=== PATIENT | female | born 1990 | race Caucasian/White ===

== ENCOUNTER 2016-03-21 16:41 | Emergency (ER) | payer MEDICAID ==
[~2016-03-21] VITALS: Ht 157.5 cm; Wt 50.0 kg
[~2016-03-21 16:41] MED LIST: ZOFR4TAB3 SL
[2016-03-21 16:46] VITALS: BP 122/83; PULSE 106; RESP 20; TEMP 98; O2SAT 97
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
[2016-03-21] MEDS ORDERED: TETANUS/DIPHTHERIA TOXOID ADULT 0.5 ML VIAL IM ONE (18:30)
[2016-03-21] MEDS ORDERED: ACETAMINOPHEN/HYDROcodone 325 MG/5 MG TAB PO ONE (18:45)
[2016-03-21] MEDS ORDERED: AMOX875T PO (18:48)
[2016-03-21] MEDS ORDERED: HYDR-3533 PO (18:48)
== END 2016-03-21 19:00 | disposition home or self-care (01) ==
LOC: NEPB 16:41
DX: S02.401A Maxillary fracture, unspecified side, initial encounter for closed fracture (principal); S00.511A Abrasion of lip, initial encounter; S02.5XXA Fracture of tooth (traumatic), initial encounter for closed fracture; K01.0 Embedded teeth; F17.210 Nicotine dependence, cigarettes, uncomplicated; F12.10 Cannabis abuse, uncomplicated; F10.20 Alcohol dependence, uncomplicated; Z23 Encounter for immunization; Y93.55 Activity, bike riding; V18.0XXA Pedal cycle driver injured in noncollision transport accident in nontraffic accident, initial encounter; Y92.9 Unspecified place or not applicable; Y99.9 Unspecified external cause status
CPT/HCPCS: 70450; 70486; 90471; 90714

== ENCOUNTER 2017-01-24 15:15 | Emergency (ER) | payer OTHER, MEDICAID ==
[~2017-01-24 15:15] MED LIST changes: +AMOX875T PO; +HYDR-3533 PO; -ZOFR4TAB3 SL
[2017-01-24 15:18] VITALS: BP 120/83; PULSE 109; RESP 18; TEMP 98.7; O2SAT 96
[2017-01-24] MEDS ORDERED: CLINDAMYCIN 600 MG/DEX PREMIX 50 ML IV ONE (16:30)
[2017-01-24] MEDS ORDERED: ACETAMINOPHEN/HYDROcodone 325 MG/5 MG TAB PO ONE (16:30)
[2017-01-24] MEDS ORDERED: KETOROLAC TROMETHAMINE 30 MG/ML (IVP) VIAL IV PUSH ONE (16:30)
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
[2017-01-24 17:24] LABS: AUTOMATED NEUTROPHIL # 5.7 TH/MM3 (1.8-7.7); BASOPHIL # 0.1 TH/MM3 (0-0.2); BASOPHIL % 0.9 % (0.0-2.0); EOSINOPHIL # 0.1 TH/MM3 (0-0.4); EOSINOPHIL % 0.7 % (0.0-4.0); HEMATOCRIT 39.2 % (35.0-46.0); HEMO FLAGS DIFF FINAL; LYMPH % 24.8 % (9.0-44.0); LYMPHOCYTE # 2.1 TH/MM3 (1.0-4.8); MEAN CELL VOLUME 97.3 FL (80.0-100.0); MEAN CORPUSCULAR HEMOGLOBIN 32.6 PG (27.0-34.0); MEAN CORPUSCULAR HGB CONC 33.5 % (32.0-36.0); MONO % 7.9 % (0.0-8.0); NEUT % 65.7 % (16.0-70.0); PLATELET COUNT 317 TH/MM3 (150-450); RED BLOOD COUNT 4.03 MIL/MM3 (4.00-5.30); RED CELL DISTRIBUTION WIDTH 14.5 % (11.6-17.2); WHITE BLOOD COUNT 8.6 TH/MM3 (4.0-11.0)
[2017-01-24 17:51] LABS: BICARBONATE 28.9 MEQ/L (21.0-32.0); POTASSIUM 3.3 MEQ/L (3.5-5.1)
[2017-01-24] MEDS ORDERED: HYDR-3516 PO (18:07)
[2017-01-24] MEDS ORDERED: CLIN150C14 PO (18:07)
[2017-01-24 19:21] VITALS: BP 125/58; PULSE 85; RESP 16; O2SAT 96
== END 2017-01-24 19:38 | disposition home or self-care (01) ==
LOC: NEPE 15:15
DX: S82.831A Other fracture of upper and lower end of right fibula, initial encounter for closed fracture (principal); L03.115 Cellulitis of right lower limb; F17.200 Nicotine dependence, unspecified, uncomplicated; V49.9XXA Car occupant (driver) (passenger) injured in unspecified traffic accident, initial encounter
CPT/HCPCS: 73610; 73630; 80048; 85025; 86403; 87040; 87070; 96365; 96375; 99285; J1885; L2114; 87205

== ENCOUNTER 2017-01-29 15:27 | Emergency (ER) | payer MEDICAID, OTHER ==
[~2017-01-29 15:27] MED LIST changes: -AMOX875T PO; +CLIN150C14 PO; +HYDR-3516 PO; -HYDR-3533 PO
[2017-01-29 15:31] VITALS: BP 124/83; PULSE 114; RESP 12; TEMP 98.4; O2SAT 100
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
== END 2017-01-29 16:56 | disposition home or self-care (01) ==
LOC: NEPK 15:27
DX: Z48.02 Encounter for removal of sutures (principal); F17.200 Nicotine dependence, unspecified, uncomplicated; Z79.899 Other long term (current) drug therapy
CPT/HCPCS: 99281

== ENCOUNTER 2017-02-19 19:35 | Emergency (ER) | payer MEDICAID ==
[~2017-02-19] VITALS: Ht 157.5 cm; Wt 56.8 kg
[2017-02-19 19:37] VITALS: BP 118/77; PULSE 84; RESP 16; TEMP 98.5; O2SAT 99
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
== END 2017-02-19 20:36 | disposition home or self-care (01) ==
LOC: NEPK 19:35
DX: S82.831D Other fracture of upper and lower end of right fibula, subsequent encounter for closed fracture with routine healing (principal); V89.2XXD Person injured in unspecified motor-vehicle accident, traffic, subsequent encounter; F17.200 Nicotine dependence, unspecified, uncomplicated; F12.90 Cannabis use, unspecified, uncomplicated
CPT/HCPCS: 99282